=== PATIENT | female | born 1975 | race Caucasian/White ===

== ENCOUNTER 2017-08-30 00:24 | Emergency (ER) | payer MEDICARE, OTHER ==
[~2017-08-30] VITALS: Ht 160 cm; Wt 96.6 kg
[2017-08-30 00:30] VITALS: BP 117/70
[2017-08-30 00:40] VITALS: BP 117/70
--- NOTE | 2017-08-30 00:58 | Emergency Room Report ---
History of Present Illness General Chief Complaint: Eye Problems Source: Patient, EMS Present Illness HPI 41-year-old female history of schizoaffective disorder, history of alcoholism and neuropathy, legal blindness for 2 years, glaucoma presenting with worsening right eye pain for one week. Patient states it is throbbing, slight worsening blurry vision for one week. Comes and goes. Denies any fever chills nausea vomiting. Headache is not sudden onset. Allergies: Coded Allergies: CODEINE (Verified Allergy, Unknown, 08/30/17) DIVALPROEX SODIUM (Verified Allergy, Unknown, 08/30/17) MORPHINE (Verified Allergy, Unknown, 08/30/17) ONDANSETRON (Verified Allergy, Unknown, 08/30/17) PERMETHRIN (Verified Allergy, Unknown, 08/30/17) TOLTERODINE (Verified Allergy, Unknown, 08/30/17) Patient History Past Medical History: see triage record Past Surgical History: none Pertinent Family History: none Last Menstrual Period: unk Reviewed Nursing Documentation: PMH: Agreed, PSxH: Agreed Review of Systems All Other Systems: negative except mentioned in HPI Physical Exam Vital Signs Date Time Temp Pulse Resp B/P (MAP) Pulse Ox O2 Delivery O2 Flow Rate FiO2 08/30/17 00:25 98.4 97 16 117/70 98 Room Air Sp02 EP Interpretation: reviewed, normal General Appearance: no apparent distress, alert, GCS 15, non-toxic, mild distress Head: normocephalic, atraumatic Eyes: bilateral eye normal inspection, bilateral eye PERRL, bilateral eye EOMI , bilateral eye other - Right eye intraocular pressure 23, left eye intraocular pressure 24, no foreign body seen, no scleral injection ENT: normal ENT inspection, normal pharynx, normal voice, moist mucus membranes Neck: normal inspection, full range of motion, supple Respiratory: normal inspection, lungs clear, normal breath sounds, no respiratory distress, no retraction, no wheezing, speaking full sentences, chest symmetrical Cardiovascular #1: normal inspection, regular rate, rhythm, no edema, normal capillary refill Cardiovascular #2: 2+ radial (R), 2+ radial (L) Gastrointestinal: normal inspection, non tender, soft, non-distended, no guarding Musculoskeletal: normal inspection, back normal, normal range of motion, non- tender Neurologic: normal inspection, alert, oriented x3, responsive, hose tubing backer III-XII nml as tested, motor strength/tone normal, sensory intact, normal gait, speech normal Psychiatric: normal inspection, judgement/insight normal, memory normal Skin: normal inspection, normal color, no rash, warm/dry, well hydrated, normal turgor Medical Decision Making Diagnostic Impression: Primary Impression: Pain, eye, right Additional Impression: Glaucoma ER Course 41-year-old female presenting with one to 2 weeks of right eye pain history of glaucoma DDX: Glaucoma versus conjunctivitis versus foreign body Plan: Pain control ER course: Patient has remained stable during ED stay. No significant elevation of intraocular pressure on Rohan-Pen Physical exam unremarkable Disposition: Patient is to be discharged to home. Prescriptions given are Percocet Patient is instructed to follow up with their automation and controls instructor within 5 days. Patient is instructed to continue to take her glaucoma medication as directed Strict return precautions discussed with patient such as fever, chills, worsening/severe pain, nausea, vomiting, which may indicate severe illness. Patient verbalizes understanding and agrees with plan. Please note that this Emergency Department Report was dictated using [employer] worker technology software, occasionally this can lead to erroneous entry secondary to interpretation by the dictation equipment Last Vital Signs Date Time Temp Pulse Resp B/P (MAP) Pulse Ox O2 Delivery O2 Flow Rate FiO2 08/30/17 00:25 98.4 97 16 117/70 98 Room Air Disposition: HOME, SELF-CARE Condition: Improved Scripts Oxycodone/Acetaminophen 5-325* (PERCOCET 5-325 MG TABLET*) 1 Each Tablet 1 TAB ORAL Q6HR Y for For Pain, #5 TAB 0 Refills Prov: Madison Curry M.D. 08/30/17 Madison Curry M.D. Aug 30, 2017 00:58
--- NOTE | 2017-08-30 00:58 | Emergency Room Report ---
History of Present Illness General Chief Complaint: Eye Problems Source: Patient, EMS Present Illness HPI 41-year-old female history of schizoaffective disorder, history of alcoholism and neuropathy, legal blindness for 2 years, glaucoma presenting with worsening right eye pain for one week. Patient states it is throbbing, slight worsening blurry vision for one week. Comes and goes. Denies any fever chills nausea vomiting. Headache is not sudden onset. Allergies: Coded Allergies: CODEINE (Verified Allergy, Unknown, 08/30/17) DIVALPROEX SODIUM (Verified Allergy, Unknown, 08/30/17) MORPHINE (Verified Allergy, Unknown, 08/30/17) ONDANSETRON (Verified Allergy, Unknown, 08/30/17) PERMETHRIN (Verified Allergy, Unknown, 08/30/17) TOLTERODINE (Verified Allergy, Unknown, 08/30/17) Patient History Past Medical History: see triage record Past Surgical History: none Pertinent Family History: none Last Menstrual Period: unk Reviewed Nursing Documentation: PMH: Agreed, PSxH: Agreed Review of Systems All Other Systems: negative except mentioned in HPI Physical Exam Vital Signs Date Time Temp Pulse Resp B/P (MAP) Pulse Ox O2 Delivery O2 Flow Rate FiO2 08/30/17 00:25 98.4 97 16 117/70 98 Room Air Sp02 EP Interpretation: reviewed, normal General Appearance: no apparent distress, alert, GCS 15, non-toxic, mild distress Head: normocephalic, atraumatic Eyes: bilateral eye normal inspection, bilateral eye PERRL, bilateral eye EOMI , bilateral eye other - Right eye intraocular pressure 23, left eye intraocular pressure 24, no foreign body seen, no scleral injection ENT: normal ENT inspection, normal pharynx, normal voice, moist mucus membranes Neck: normal inspection, full range of motion, supple Respiratory: normal inspection, lungs clear, normal breath sounds, no respiratory distress, no retraction, no wheezing, speaking full sentences, chest symmetrical Cardiovascular #1: normal inspection, regular rate, rhythm, no edema, normal capillary refill Cardiovascular #2: 2+ radial (R), 2+ radial (L) Gastrointestinal: normal inspection, non tender, soft, non-distended, no guarding Musculoskeletal: normal inspection, back normal, normal range of motion, non- tender Neurologic: normal inspection, alert, oriented x3, responsive, tape recorder mechanic III-XII nml as tested, motor strength/tone normal, sensory intact, normal gait, speech normal Psychiatric: normal inspection, judgement/insight normal, memory normal Skin: normal inspection, normal color, no rash, warm/dry, well hydrated, normal turgor Medical Decision Making Diagnostic Impression: Primary Impression: Pain, eye, right Additional Impression: Glaucoma ER Course 41-year-old female presenting with one to 2 weeks of right eye pain history of glaucoma DDX: Glaucoma versus conjunctivitis versus foreign body Plan: Pain control ER course: Patient has remained stable during ED stay. No significant elevation of intraocular pressure on Rohan-Pen Physical exam unremarkable Disposition: Patient is to be discharged to home. Prescriptions given are Percocet Patient is instructed to follow up with their pharmacist critical care within 5 days. Patient is instructed to continue to take her glaucoma medication as directed Strict return precautions discussed with patient such as fever, chills, worsening/severe pain, nausea, vomiting, which may indicate severe illness. Patient verbalizes understanding and agrees with plan. Please note that this Emergency Department Report was dictated using [employer] technology software, occasionally this can lead to erroneous entry secondary to interpretation by the dictation equipment Last Vital Signs Date Time Temp Pulse Resp B/P (MAP) Pulse Ox O2 Delivery O2 Flow Rate FiO2 08/30/17 00:25 98.4 97 16 117/70 98 Room Air Disposition: HOME, SELF-CARE Condition: Improved Scripts Oxycodone/Acetaminophen 5-325* (PERCOCET 5-325 MG TABLET*) 1 Each Tablet 1 TAB ORAL Q6HR Y for For Pain, #5 TAB 0 Refills Prov: Madison Curry M.D. 08/30/17 Madison Curry M.D. Aug 30, 2017 00:58
--- NOTE | 2017-08-30 00:58 | Emergency Room Report ---
History of Present Illness General Chief Complaint: Eye Problems Source: Patient, EMS Present Illness HPI 41-year-old female history of schizoaffective disorder, history of alcoholism and neuropathy, legal blindness for 2 years, glaucoma presenting with worsening right eye pain for one week. Patient states it is throbbing, slight worsening blurry vision for one week. Comes and goes. Denies any fever chills nausea vomiting. Headache is not sudden onset. Allergies: Coded Allergies: CODEINE (Verified Allergy, Unknown, 08/30/17) DIVALPROEX SODIUM (Verified Allergy, Unknown, 08/30/17) MORPHINE (Verified Allergy, Unknown, 08/30/17) ONDANSETRON (Verified Allergy, Unknown, 08/30/17) PERMETHRIN (Verified Allergy, Unknown, 08/30/17) TOLTERODINE (Verified Allergy, Unknown, 08/30/17) Patient History Past Medical History: see triage record Past Surgical History: none Pertinent Family History: none Last Menstrual Period: unk Reviewed Nursing Documentation: PMH: Agreed, PSxH: Agreed Review of Systems All Other Systems: negative except mentioned in HPI Physical Exam Vital Signs Date Time Temp Pulse Resp B/P (MAP) Pulse Ox O2 Delivery O2 Flow Rate FiO2 08/30/17 00:25 98.4 97 16 117/70 98 Room Air Sp02 EP Interpretation: reviewed, normal General Appearance: no apparent distress, alert, GCS 15, non-toxic, mild distress Head: normocephalic, atraumatic Eyes: bilateral eye normal inspection, bilateral eye PERRL, bilateral eye EOMI , bilateral eye other - Right eye intraocular pressure 23, left eye intraocular pressure 24, no foreign body seen, no scleral injection ENT: normal ENT inspection, normal pharynx, normal voice, moist mucus membranes Neck: normal inspection, full range of motion, supple Respiratory: normal inspection, lungs clear, normal breath sounds, no respiratory distress, no retraction, no wheezing, speaking full sentences, chest symmetrical Cardiovascular #1: normal inspection, regular rate, rhythm, no edema, normal capillary refill Cardiovascular #2: 2+ radial (R), 2+ radial (L) Gastrointestinal: normal inspection, non tender, soft, non-distended, no guarding Musculoskeletal: normal inspection, back normal, normal range of motion, non- tender Neurologic: normal inspection, alert, oriented x3, responsive, associate financial advisor III-XII nml as tested, motor strength/tone normal, sensory intact, normal gait, speech normal Psychiatric: normal inspection, judgement/insight normal, memory normal Skin: normal inspection, normal color, no rash, warm/dry, well hydrated, normal turgor Medical Decision Making Diagnostic Impression: Primary Impression: Pain, eye, right Additional Impression: Glaucoma ER Course 41-year-old female presenting with one to 2 weeks of right eye pain history of glaucoma DDX: Glaucoma versus conjunctivitis versus foreign body Plan: Pain control ER course: Patient has remained stable during ED stay. No significant elevation of intraocular pressure on Rohan-Pen Physical exam unremarkable Disposition: Patient is to be discharged to home. Prescriptions given are Percocet Patient is instructed to follow up with their psychologist educational within 5 days. Patient is instructed to continue to take her glaucoma medication as directed Strict return precautions discussed with patient such as fever, chills, worsening/severe pain, nausea, vomiting, which may indicate severe illness. Patient verbalizes understanding and agrees with plan. Please note that this Emergency Department Report was dictated using [employer] public defender technology software, occasionally this can lead to erroneous entry secondary to interpretation by the dictation equipment Last Vital Signs Date Time Temp Pulse Resp B/P (MAP) Pulse Ox O2 Delivery O2 Flow Rate FiO2 08/30/17 00:25 98.4 97 16 117/70 98 Room Air Disposition: HOME, SELF-CARE Condition: Improved Scripts Oxycodone/Acetaminophen 5-325* (PERCOCET 5-325 MG TABLET*) 1 Each Tablet 1 TAB ORAL Q6HR Y for For Pain, #5 TAB 0 Refills Prov: Madison Curry M.D. 08/30/17 Madison Curry M.D. Aug 30, 2017 00:58
[2017-08-30] MEDS ORDERED: Tetracaine 0.5% Opth 4ml Soln RIGHT EYE ONE (01:00)
[2017-08-30] MEDS ORDERED: PERCOCET 5-3251 EACH ORAL (01:10)
== END 2017-08-30 00:50 | disposition home or self-care (01) ==
LOC: EDBD 00:24 → EMR 00:47
DX: H40.9 Unspecified glaucoma (principal); H54.8 Legal blindness, as defined in USA; Z88.6 Allergy status to analgesic agent; Z88.8 Allergy status to other drugs, medicaments and biological substances; F10.21 Alcohol dependence, in remission
CPT/HCPCS: 99283